=== PATIENT | male | born 1975 | race Caucasian/White ===

== ENCOUNTER 2019-07-28 13:17 | Outpatient (RCR) | payer OTHER, SELFPAY ==
--- NOTE | 2019-07-28 16:53 | HBO.CON.PC_ITS ---
(1) Non-pressure chronic ulcer of other part of right foot with necrosis of muscle Status: Chronic Code(s): L97.513 - Non-pressure chronic ulcer of other part of right foot with necrosis of muscle (2) Type 2 diabetes mellitus with right diabetic foot ulcer Status: Chronic Code(s): E11.621 - Type 2 diabetes mellitus with foot ulcer; L97.519 - Non-pressure chronic ulcer of other part of right foot with unspecified severity History of Present Illness Date of Service: 07/28/19 Presenting Chief Complaint: Ulcers of right foot after having cellulitis caused by a foreign body. The patient is a 43 year old M who [facility] the possibility of initiating hyperbaric oxygen therapy for treatment of the ulcers of his right foot. On 06/14/2019 patient presented to [facility] [place] right foot swelling and pain. On x-ray was found that he had a 3 mm opaque foreign body in the proximal fourth or fifth digit with possible adjacent soft tissue gas. He states he walks barefoot both inside and out, and has a history of neuropathy. He states his neuropathy is caused from his back pain and sciatica. He been having issues with his foot with swelling and pain for 5 days. Podiatry had been consulted and a bedside I&D was done with purulent drainage which was sent for culture and he was placed on IV cefepime and vancomycin and admitted for sepsis and a diabetic foot infection. On 06/15/2019 he was taken to surgery for surgical debridement of his right foot by Randy Cartagena DPM. Operative cultures positive for MSSA. Patient taken back to the OR on 06/19/2019 for additional I&D with excisional debridement to the level of the deep fascia of the right foot. PICC line placed and he was discharged on cefazolin on 06/23/2019. He had a a wound VAC to the dorsal portion of his right foot proximal to the fourth toe. He he now has open wounds on the plantar portion proximal to his second toe fourth toe and fifth toe. The right lateral foot and the right dorsal foot are both healed. He has been having wound care done by Dr. Cartagena weekly who now recommends HBOT. The patient was referred to our facility because it is much closer to his home than [place]. His doctor is recommending the patient come here for HBOT and wound care and then he would see him every three weeks. Past Medical History Chronic Problems Non-pressure chronic ulcer of other part of right foot with necrosis of muscle (Chronic) Type 2 diabetes mellitus with right diabetic foot ulcer (Chronic) Home Medications: Ambulatory Orders Medication Instructions Recorded Lisinopril/Hydrochlorothiazide 1 ea PO DAILY 07/28/19 [Lisinopril-Hctz 20-25 mg Tab] metFORMIN (XR) [Glucophage Xr] 1,000 mg PO BID 07/28/19 Smoking Status: Former smoker Review of Systems Constitutional: Denies: Chills, Fever, Weight Change Eyes: Denies: Pain, Vision Change HEENT: Denies: Difficulty Hearing, Difficulty Swallowing, Sinus Congestion Cardiovascular: Denies: Chest Pain, Palpitations Respiratory: Denies: Cough, Shortness of Breath Gastrointestinal: Denies: Diarrhea, Nausea, Vomiting Genitourinary: Denies: Dysuria, Hematuria Musculoskeletal: Reports: Foot Pain - right foot Skin: Reports: Wounds - Open wounds on the plantar surface of his right foot proximal to toe #2, #4, #5. And on the dorsal portion of his right foot proximal to toe #2 and #3 and #4. Neurological: Denies: Difficulty swallowing, Headaches Psychiatric: Denies: Anxiety Endocrine: Denies: Heat/ Cold Intolerance, Polydipsia, Polyuria Hematologic/ Lymphatic: Denies: Easy Bruising, Easy Bleeding - Physical Exam General: Alert, Oriented x3, Cooperative HEENT: Atraumatic, TM's Clear Oral: Moist Mucosa Lungs: Clear to auscultation, Normal air movement, No rhonchi Cardiovascular: Regular rate, Regular Rhythm Abdomen: Bowel Sounds Present, Soft Extremities: Capillary Refill Less than 3 Seconds, Edema, Peripheral Pulses Normal Skin: Ulcer/ Wound - Multiple open wounds of right foot both dorsal and plantar aspect Wound Measurements and Assessment WC - Nurse 2 - General Ulcer CM Notes Start: 07/28/19 13:55 Freq: Status: Active Protocol: Activity Type Activity Date Activity User E-Sign Co-Sign Detail Recorded Client Recorded Date Recorded By Document 07/28/19 14:31 ASAF [id number] 07/28/19 14:34 ASAF 07/28/19 14:31 Pain Scale: 0-10 Numeric [Pain] -Is Patient Pain Free? Yes Musculoskeletal: No Muscle Wasting Neurological: Neuro grossly intact Psych/Mental Status: Normal Affect, Appropriate Assessment/Plan AKI MONDRAGON is an appropriate candidate for hyperbaric oxygen therapy. Hyperbaric Oxygen Therapy would be an essential adjunct in the resolution and treatment of this patient's presenting problem. This patient has sufficient physiologic and psychological stamina to undergo the rigors of hyperbaric oxygen therapy. I would like to obtain a baseline ECG and chest X-ray before HBOT would be started. As such, I recommend the following: Hyperbaric Oxygen Treatments at 2.0 [place] in 100% Oxygen for 90 minutes per treatment, for 40 treatments. I have discussed the possible benefits of hyperbaric oxygen therapy with this patient. I have also presented and described the risks, including: air gas embolism, pneumothorax, central nervous system and pulmonary oxygen toxicity, flash pulmonary edema, hypoglycemia, reversible visual refractive changes, ear and sinus jayjay-trauma, and confinement anxiety. The patient has verbalized understanding of these risks, and is still wanting to undergo hyperbaric oxygen therapy. The patient understands the significant time and transportation comm itment involved in daily treatments of up to two hours duration and has stated that they are willing to commit to this therapy. - HBOT Diagnosis Morris III Diabetic Foot/Toe Ulcer (707.15/250.8) Code Visit Office Visits / Consults: [id number] OV L4 New
== END 2019-08-18 23:59 ==
LOC: WC 13:17
PROVIDERS: Family Provider Nurse Practitioner Adult Health; PCP Nurse Practitioner Adult Health; Visit Provider Nurse Practitioner Family
DX: E11.621 Type 2 diabetes mellitus with foot ulcer (principal); L97.513 Non-pressure chronic ulcer of other part of right foot with necrosis of muscle; G62.9 Polyneuropathy, unspecified; Z87.891 Personal history of nicotine dependence
CPT/HCPCS: 99204; G0463

== ENCOUNTER → 2019-08-03 19:17 | Outpatient (CLI) | payer OTHER, SELFPAY ==
[2019-08-03 19:35] LABS: Absolute Lymphocyte Count 2.69 X10^3/uL (0.83-4.51); Absolute Neutrophil Count 5.6 X10^3/uL (2.0-7.7); Basophil# 0.08 X10^3/uL; Basophil% 0.9 % (0-1); Eosinophils% 3.2 % (0-5); Hematocrit 45.6 % (40-54); Hemoglobin 15.9 g/dL (13.0-16.5); Lymphocyte # 2.69 X10^3/ul (4.0); Lymphocyte % 28.8 % (19-41); Mean Corp Hgb Conc 34.9 g/dL (32-36); Mean Corpuscular Hgb 30.5 pg (27.0-32.0); Mean Corpuscular Volume 87.5 fL (80-94); Mean Platelet Vol. 11.7 fl (6.2-12.0); Monocyte# 0.69 X10^3/uL; Monocyte% 7.4 % (0-10); NRBC Flagged by Analyzer 0 % (0-5); Neutrophil # 5.57 X10^3/uL (2.7-7.7); Neutrophil % 59.5 % (47-70); Platelet Count 286 K/mm3 (150-450); RBC Distribution Width CV 12.3 % (11.6-14.6); RBC Distribution Width SD 39.5 fl (35.1-43.9); Red Blood Count 5.21 M/mm3 (4.6-6.2); White Blood Count 9.4 K/mm3 (4.4-11.0)
[2019-08-03 19:44] LABS: Anion Gap 5 (5-15); BUN 16 mg/dL (7-18); BUN/Creat Ratio 20.3 RATIO (10-20); CRP < 2.90 mg/L (0.0-3.0); Calcium,Total 8.7 mg/dL (8.5-10.1); Chloride 105 mmol/L (98-107); Creatinine, Serum 0.79 mg/dL (0.70-1.30); EST Glomerular Filtration Rate 115 mL/min (>60); Est Glom Filt Rate - Afr Amer 139 mL/min (>60); Glucose 129 mg/dL (74-106); Potassium 3.8 mmol/L (3.5-5.1); Sodium Level 138 mmol/L (136-145)
== END ==
LOC: LABSPEC 19:20 → HHLAB 19:21
PROVIDERS: Family Provider Nurse Practitioner Adult Health; PCP Nurse Practitioner Adult Health
DX: L03.90 Cellulitis, unspecified (principal)
CPT/HCPCS: 80048; 85025; 86140